=== PATIENT | male | born 1950 | race Caucasian/White ===

== ENCOUNTER 2016-04-15 12:31 | Observation (INO) ==
--- NOTE | 2016-04-15 12:58 | Emergency Department Note ---
Disposition Clinical Impression: Syncope Qualifiers: Syncope type: unspecified Qualified Code(s): R55 - Syncope and collapse Disposition: Admitted As Inpatient Condition: Good Referrals: Steven Collazo Jr, MD [Primary Care Provider] - Forms: ED Satisfaction Letter Time of Disposition: 15:28 General Adult HPI - General Chief complaint: ED Neuro Symptoms/Deficit Stated complaint: syncope x 2 Time Seen by Provider: 04/15/16 12:50 Source: patient, family Limitations: no limitations Nursing Notes Reviewed: Yes Vital Signs Reviewed: Yes - History of Present Illness HPI Narrative: 66-year-old male who apparently suffered a couple of episodes of syncope last 1 week ago. Patient apparently doesn't remember what happened doesn't remember driving home. He did suffer an injury to the right chest wall is a fluid collection with ecchymosis there. 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 Radiation: non-radiation Pain Scale: 6 Consistency: constant Improves with: nothing Worsens with: movement Associated symptoms: Reports: syncope - Related Data Home Medications Medication Instructions Recorded Confirmed Metoprolol [Lopressor] 50 mg PO BID 07/20/15 07/20/15 Omeprazole [PriLOSEC] 40 mg PO DAILY 07/20/15 07/20/15 Allergies Allergy/AdvReac Type Severity Reaction Status Date / Time No Known Allergies Allergy Verified 04/15/16 12:37 Constitutional: Denies: fever, chills, weakness, weight change Eyes: Denies: eye pain, eye discharge, vision change ENT ED: Denies: ear pain, throat pain, dental pain, hearing loss, epistaxis, congestion, dysphagia Cardiovascular: Reports: chest pain, syncope. Denies: palpitations, dyspnea on exertion, edema Respiratory: Denies: cough, dyspnea, wheezes, hemoptysis, stridor Gastrointestinal: Denies: abdominal pain, nausea, vomiting, diarrhea, constipation, hematemesis, melena, hematochezia Genitourinary: Denies: urgency, dysuria, frequency, hematuria Musculoskeletal: Denies: back pain, neck pain, arthralgia, myalgia Integumentary: Denies: rash, abrasion, lesions Neurological: Denies: headache, weakness, numbness, paresthesias, confusion, abnormal gait, vertigo Psychiatric: Denies: anxiety, depression, suicidal thoughts, homicidal thoughts , auditory hallucinations, visual hallucinations Endocrine: Denies: fatigue Hematological/Lymphatic: Denies: easy bleeding, easy bruising Allergic/Immunologic: Denies: facial swelling, urticaria Past Medical History - Past Medical History Medical history: Reports: GERD, hypertension, thyroid disease Surgical history: Reports: cataract, orthopedic, other Psychiatric history: Reports: anxiety, depression - Social History Smoking Status: Former smoker Smokeless Tobacco Status: No Alcohol use: Reports: heavy Drug use: Reports: none Physical Exam - General Limitations: no limitations General appearance: alert, in no apparent distress - Head Head exam: atraumatic, normocephalic, normal inspection - Eye Eye exam: Present: normal appearance, PERRL, EOMI - ENT ENT exam: normal exam, normal oropharynx, mucous membranes moist - Neck Neck exam: Present: normal inspection, full ROM, trachea midline - Chest Chest inspection: Present: tenderness, other (Ecchymotic) - Respiratory Respiratory exam: Present: normal lung sounds bilaterally - Cardiovascular Cardiovascular exam: Present: regular rate, normal rhythm, normal heart sounds - Abdominal Exam Abdominal exam: Present: soft, Non-Tender. Absent: tenderness, distention, guarding, rebound, rigidity - Extremities Exam Extremities exam: Present: normal inspection, full ROM. Absent: tenderness, pedal edema - Expanded Lower Extremity Exam Neurovascular/Tendon exam: Absent: motor deficit, sensory deficit, tendon deficit Gait: observed and normal - Back Exam Back exam: Present: normal inspection, full ROM. Absent: tenderness - Neurological Exam Neurological exam: Present: alert, oriented X3 - Psychiatric Psychiatric exam: Present: normal affect, normal mood - Skin Skin exam: Present: warm, dry, intact, normal color Course - Reevaluation(s) Reevaluation #1: 66-year-old who suffered a syncopal episode 2 with no memory of the incident. He initially fell and injured his chest and one of the episodes. Workup here is negative including cardiac and CT of the head. Also CT his chest which was negative. We will admit him for evaluation. Time: 15:28 - Consultations Consultation #1: Discussed with Dr. Burden, admitted. Time: 15:27 Vital Signs Temperature 98.3 F 04/15/16 12:37 Pulse Rate 84 04/15/16 12:37 Respiratory Rate 14 04/15/16 12:37 Blood Pressure 158/73 04/15/16 12:37 O2 Sat by Pulse Oximetry 95 04/15/16 12:37 Temperature 98.3 F 04/15/16 12:37 Pulse Rate 86 04/15/16 13:07 Respiratory Rate 16 04/15/16 13:07 Blood Pressure 137/86 04/15/16 13:07 O2 Sat by Pulse Oximetry 93 L 04/15/16 13:07 Oxygen Delivery Oxygen Delivery Room Air Medical Decision Making - Lab Data Lab results reviewed: Yes I reviewed the patient's lab results. Result diagrams: 04/15/16 13:05 04/15/16 13:05 Lab Results 04/15/16 04/15/16 04/15/16 Range/Units 13:05 13:05 13:05 WBC 7.6 (4.3-11.1) K/mcL RBC 5.24 (4.19-5.50) M/mcL Hgb 16.4 (12.9-16.9) g/dL Hct 46.4 (37.5-50.1) % MCV 88.5 (83.0-100.0) fL MCH 31.3 (28.0-33.3) pg MCHC 35.3 (31.6-35.5) g/dL RDW 13.2 (11.5-14.5) % Plt Count 212 (140-400) K/mcL MPV 9.4 (9.4-12.4) fL Immature Gran % 0.3 (0-4) % Seg Neutrophils % 47.2 % Lymphocytes % 37.5 % Monocytes % 11.5 % Eosinophils % 2.8 % Basophils % 0.7 % Neutrophils # 3.6 (1.6-8.9) K/mcL Lymphocytes # 2.8 (0.6-4.6) K/mcL Monocytes # 0.9 (0.0-1.3) K/mcL Eosinophils # 0.2 (0.0-0.6) K/mcL Basophils # 0.1 (0.0-0.2) K/mcL PT 11.0 (9.4-12.1) Seconds INR 1.0 APTT 29.9 (26.0-36.0) Seconds Sodium 139 (136-145) mEq/L Potassium 3.7 (3.5-4.5) mEq/L Chloride 108 (98-109) mEq/L Carbon Dioxide 22 (19-29) mEq/L BUN 21 (8-26) mg/dL Creatinine 1.20 (0.72-1.25) mg/dL Est GFR ( Amer) > 60 (> 60) Est GFR (Non-Af Amer) > 60 (> 60) BUN/Creatinine Ratio 18 (6-26) Glucose 80 (70-99) mg/dL Calculated Osmolality 290 (280-300) Calcium 9.5 (8.6-10.8) mg/dL Troponin I (0-0.03) ng/mL 04/15/16 Range/Units 13:05 WBC (4.3-11.1) K/mcL RBC (4.19-5.50) M/mcL Hgb (12.9-16.9) g/dL Hct (37.5-50.1) % MCV (83.0-100.0) fL MCH (28.0-33.3) pg MCHC (31.6-35.5) g/dL RDW (11.5-14.5) % Plt Count (140-400) K/mcL MPV (9.4-12.4) fL Immature Gran % (0-4) % Seg Neutrophils % % Lymphocytes % % Monocytes % % Eosinophils % % Basophils % % Neutrophils # (1.6-8.9) K/mcL Lymphocytes # (0.6-4.6) K/mcL Monocytes # (0.0-1.3) K/mcL Eosinophils # (0.0-0.6) K/mcL Basophils # (0.0-0.2) K/mcL PT (9.4-12.1) Seconds INR APTT (26.0-36.0) Seconds Sodium (136-145) mEq/L Potassium (3.5-4.5) mEq/L Chloride (98-109) mEq/L Carbon Dioxide (19-29) mEq/L BUN (8-26) mg/dL Creatinine (0.72-1.25) mg/dL Est GFR ( Amer) (> 60) Est GFR (Non-Af Amer) (> 60) BUN/Creatinine Ratio (6-26) Glucose (70-99) mg/dL Calculated Osmolality (280-300) Calcium (8.6-10.8) mg/dL Troponin I 0.02 (0-0.03) ng/mL - Radiology Data Radiology results reviewed: Yes I reviewed the patient's radiology results. Chest X-Ray 04/15/16 12:54 IMPRESSION: No acute cardiopulmonary process. D/ / 04/15/2016 13:51:13 Audie Lantigua MD / santiago Interpreting Provider: Audie Lantigua MD Chest CT 04/15/16 12:55 IMPRESSION: No acute pulmonary process. No evidence for acute osseous or chest wall injury. D/ / 04/15/2016 14:37:41 Medina Alatorre MD / cisco Interpreting Provider: Medina Alatorre MD Head CT 04/15/16 12:55 IMPRESSION: No acute intracranial abnormality. Patchy hypodensities in the periventricular and subcortical white matter, which are nonspecific, but may represent chronic small vessel ischemic change. D/ / 04/15/2016 14:36:03 Maxim Loza MD / cisco Interpreting Provider: Maxim Loza MD - EKG Data EKG #1 EKG shows normal: sinus rhythm Rate: normal Rhythm: NSR Interpretation: no acute changes
[2016-04-15 13:15] LABS: Basophils # 0.1 K/mcL (0.0-0.2); Basophils % 0.7 %; Eosinophils # 0.2 K/mcL (0.0-0.6); Eosinophils % 2.8 %; Hematocrit 46.4 % (37.5-50.1); Hemoglobin 16.4 g/dL (12.9-16.9); Immature Granulocytes % 0.3 % (0-4); Lymphocytes # 2.8 K/mcL (0.6-4.6); Lymphocytes % 37.5 %; Mean Corpuscular HGB Conc 35.3 g/dL (31.6-35.5); Mean Corpuscular Hemoglobin 31.3 pg (28.0-33.3); Mean Corpuscular Volume 88.5 fL (83.0-100.0); Mean Platelet Volume 9.4 fL (9.4-12.4); Monocytes # 0.9 K/mcL (0.0-1.3); Monocytes % 11.5 %; Neutrophils # 3.6 K/mcL (1.6-8.9); Platelet Count 212 K/mcL (140-400); Red Blood Count 5.24 M/mcL (4.19-5.50); Red Cell Distribution Width 13.2 % (11.5-14.5); Segmented Neutrophils % 47.2 %
[2016-04-15 13:22] LABS: Activated Partial Thrombo Time 29.9 Seconds (26.0-36.0)
[2016-04-15 13:24] LABS: BUN/Creatinine Ratio 18 (6-26); Blood Urea Nitrogen 21 mg/dL (8-26); Calcium 9.5 mg/dL (8.6-10.8); Carbon Dioxide 22 mEq/L (19-29); Chloride 108 mEq/L (98-109); Glucose 80 mg/dL (70-99); Osmolality,Calculated 290 (280-300); Potassium 3.7 mEq/L (3.5-4.5); Sodium 139 mEq/L (136-145); eGFR For African Americans > 60 (> 60); eGFR For Non-African Americans > 60 (> 60)
[2016-04-15] MEDS ORDERED: Naloxone 0.4 MG/ML INJ IVP PRN (18:14)
[2016-04-15] MEDS ORDERED: *HR* LORazepam 2 MG/ML VIAL IVP PRN ×3 (18:17)
[2016-04-15] MEDS: Ibuprofen 400 MG TABLET PO PRN (21:33)
--- NOTE | 2016-04-15 23:27 | Internal Med History&Physical ---
<Arlene Burden M - Last Filed: 04/16/16 01:33> Date of Encounter: 04/16/16 Time of Encounter: 23:22 Assessment and Plan (1) Syncope Current visit: Yes Status: Acute Patient with 2 episodes of syncope over the last month. He denies any warning prior to the episodes, denies any history of seizure, denies any loss of bladder function during or after episodes. CT head showed no acute abnormality. EKG showed sinus rhythm with no acute ischemic changes. 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 [facility] protocol for alcohol withdrawal. Social work consult. (3) RUQ abdominal tenderness Current visit: Yes Status: Acute Patient with RUQ tenderness to palpation. Heavy alcohol use. Will get LFTs with morning labs. Qualifiers: Presence of rebound: absent Qualified Code(s): R10.811 - Right upper quadrant abdominal tenderness (4) Elevated troponin Current visit: Yes Status: Acute Initial troponin negative at 0.02. EKG showed sinus rhythm with no ischemic changes. Second troponin mildly elevated at 0.04. EKG ordered and showed no changes from earlier EKG. Patient denies any new or increased chest pain besides the right lateral tenderness and soreness. Continue to trend troponins. continue telemetry. Echocardiogram is ordered. (5) Right-sided chest wall pain Current visit: Yes Status: Acute Patient reports that during one of his episodes of syncope, he fell onto his right side and has had soreness and tenderness since. Patient is tender to palpation on exam. He has not tried anything to relieve the pain. 400mg Ibuprofen PRN for soreness. (6) DVT prophylaxis Current visit: Yes Status: Acute encourage ambulation anti-embolic stockings lovenox 40mg SQ daily Internal Medicine - H&P: HPI Chief complaint: syncope Admitted From: Emergency Dept Plans for Post Hospital Care: Home History of present illness: Mr. Gong is a 66 year old male with hypertension, and GERD who presented to the emergency department today with reports of 2 episodes of syncope over the last month. The first episode was one month ago and says he just blacked out and fell down. He had no warning and denies any preceding lightheadedness, dizziness. The second episode was one week ago similar experience. After the episodes he reports he feels dazed for a while. He reports his hands have been feeling numb on and off for approximately one month since the first episode. He also reports some right-sided tenderness and swelling since the first episode when he fell. He denies any central chest pain, palpitations, other episodes of lightheadedness, nausea, vomiting, diarrhea. He denies any fever, chills. He decided to come to the emergency department today because his daughter found out about the episodes and brought him in. Evaluation in the emergency department included chest x-ray which showed no acute process, head CT which showed no acute intracranial abnormality some chronic small vessel changes. His EKG showed sinus rhythm with no acute ischemia. A chest CT was obtained as well due to the right-sided tenderness and swelling it showed no acute pulmonary process as well as no evidence for chest wall injury or fracture. Troponin was negative at 0.02. On exam patient is alert and oriented , in no distress, heart has regular rate and rhythm, lungs are clear bilaterally to auscultation. He has some mild tenderness on palpation to the lateral right rib cage, and right upper quadrant. Past Med Surg Social Fam HX - Past Medical History Medical history: GERD, hypertension, thyroid disease Psychiatric history: anxiety, depression - Past Surgical History Surgical History: cataract, knee replacement, orthopedic, other (shoulder, back) - Social History Smoking Status: Former smoker (100 Pack year history. smoked 2-3 PPD X 50 years ) Smokeless Tobacco Status: No Alcohol use: heavy Drug use: none - Family History Father Hx Family Neurologic Disorders: Yes (CVA) Internal Medicine - H&P: Meds Metoprolol [Lopressor] 50 mg PO BID 07/20/15 [History] Omeprazole [PriLOSEC] 40 mg PO DAILY 07/20/15 [History] Allergies No Known Allergies Allergy (Verified 04/15/16 12:37) All Systems PM: A 10-system review of systems was performed and is negative for pertinent findings except as documented above in the HPI. - Constitutional Constitutional: falls, no chills, no fever(s), no night sweats - EENT Eyes: no change in vision, no discharge, no pain, no photophobia Ears: no ear discharge, no ear pain, no tinnitus Nose, mouth and throat: no dysphagia, no nasal discharge, no neck pain, no sore throat - Cardiovascular Cardiovascular ROS IM: syncope, no chest pain, no diaphoresis, no dyspnea, no lightheadedness, no palpitations - Respiratory Respiratory: no cough, no dyspnea, no wheezing, no excessive phlegm production - Gastrointestinal Gastrointestinal: bloating, no abdominal pain, no diarrhea, no hematemesis, no hematochezia, no melena, no nausea, no vomiting - Musculoskeletal Musculoskeletal ROS IM: myalgias (right chest wall), no numbness, no tingling - Integumentary Integumentary IM: no rash, no unusual bruising - Neurological Neurological ROS: numbness (on and off to bilateral hands), no confusion, no convulsions, no focal weakness, no tingling, no tremor(s) - Hematologic/Lymphatic Hematologic/Lymphatic: no easy bruising - Constitutional Vitals: Temp Pulse Resp BP Pulse Ox 98.3 F 87 16 141/82 94 L 04/15/16 18:32 04/15/16 18:32 04/15/16 18:32 04/15/16 18:32 04/15/16 18:32 General appearance: Present: A&O X 3, no acute distress - Head Head exam: Present: atraumatic, normocephalic - Eye Eye exam: Present: PERRL, conjuntiva pink, sclera anicteric Pupils: Present: PERRL - Neck Neck exam general surgery: Present: supple, trachea midline. Absent: lymphadenopathy - Respiratory Respiratory exam: Present: CTAB. Absent: accessory muscle use, rales, rhonchi, wheezes - Cardiovascular Cardiovascular exam: Present: RRR, +S1, +S2. Absent: diastolic murmur, gallop, rubs, systolic murmur - GI/Abdominal GI/Abdominal exam: Present: normal bowel sounds, soft, tenderness (RUQ), no peritoneal signs. Absent: distended - Extremities Exam Extremities exam: Present: warm, radial pulses palpable and symetrical. Absent : calf tenderness, cyanotic, pedal edema - Neurological Exam Neurological exam: Present: CN II-XII intact, oriented X3, no focal deficits. Absent: pronater drift, facial droop, speech deficit - Skin Skin exam: Present: dry, intact Internal Med - H&P Results - Labs CBC & Chem 7: 04/15/16 13:05 04/15/16 13:05 Labs: Cardiac Enzymes 04/15/16 Range/Units 18:44 Troponin I 0.04 H* (0-0.03) ng/mL All Lab Results (24 Hours) 04/15/16 04/15/16 04/15/16 Range/Units 13:05 13:05 13:05 WBC 7.6 (4.3-11.1) K/mcL RBC 5.24 (4.19-5.50) M/mcL Hgb 16.4 (12.9-16.9) g/dL Hct 46.4 (37.5-50.1) % MCV 88.5 (83.0-100.0) fL MCH 31.3 (28.0-33.3) pg MCHC 35.3 (31.6-35.5) g/dL RDW 13.2 (11.5-14.5) % Plt Count 212 (140-400) K/mcL MPV 9.4 (9.4-12.4) fL Immature Gran % 0.3 (0-4) % Seg Neutrophils % 47.2 % Lymphocytes % 37.5 % Monocytes % 11.5 % Eosinophils % 2.8 % Basophils % 0.7 % Neutrophils # 3.6 (1.6-8.9) K/mcL Lymphocytes # 2.8 (0.6-4.6) K/mcL Monocytes # 0.9 (0.0-1.3) K/mcL Eosinophils # 0.2 (0.0-0.6) K/mcL Basophils # 0.1 (0.0-0.2) K/mcL PT 11.0 (9.4-12.1) Seconds INR 1.0 APTT 29.9 (26.0-36.0) Seconds Sodium 139 (136-145) mEq/L Potassium 3.7 (3.5-4.5) mEq/L Chloride 108 (98-109) mEq/L Carbon Dioxide 22 (19-29) mEq/L BUN 21 (8-26) mg/dL Creatinine 1.20 (0.72-1.25) mg/dL Est GFR ( Amer) > 60 (> 60) Est GFR (Non-Af Amer) > 60 (> 60) BUN/Creatinine Ratio 18 (6-26) Glucose 80 (70-99) mg/dL Calculated Osmolality 290 (280-300) Calcium 9.5 (8.6-10.8) mg/dL Troponin I (0-0.03) ng/mL 04/15/16 04/15/16 Range/Units 13:05 18:44 WBC (4.3-11.1) K/mcL RBC (4.19-5.50) M/mcL Hgb (12.9-16.9) g/dL Hct (37.5-50.1) % MCV (83.0-100.0) fL MCH (28.0-33.3) pg MCHC (31.6-35.5) g/dL RDW (11.5-14.5) % Plt Count (140-400) K/mcL MPV (9.4-12.4) fL Immature Gran % (0-4) % Seg Neutrophils % % Lymphocytes % % Monocytes % % Eosinophils % % Basophils % % Neutrophils # (1.6-8.9) K/mcL Lymphocytes # (0.6-4.6) K/mcL Monocytes # (0.0-1.3) K/mcL Eosinophils # (0.0-0.6) K/mcL Basophils # (0.0-0.2) K/mcL PT (9.4-12.1) Seconds INR APTT (26.0-36.0) Seconds Sodium (136-145) mEq/L Potassium (3.5-4.5) mEq/L Chloride (98-109) mEq/L Carbon Dioxide (19-29) mEq/L BUN (8-26) mg/dL Creatinine (0.72-1.25) mg/dL Est GFR ( Amer) (> 60) Est GFR (Non-Af Amer) (> 60) BUN/Creatinine Ratio (6-26) Glucose (70-99) mg/dL Calculated Osmolality (280-300) Calcium (8.6-10.8) mg/dL Troponin I 0.02 0.04 H* (0-0.03) ng/mL <Nadia Eaton R - Last Filed: 04/16/16 08:00> Date of Encounter: 04/15/16 Internal Medicine - H&P: HPI History of present illness: Mr. Gong is a 66 year old male All Systems PM: A 10-system review of systems was performed and is negative for pertinent findings except as documented above in the HPI. - Constitutional Vitals: Temp Pulse Resp BP Pulse Ox 97.6 F 65 16 126/76 96 04/16/16 03:11 04/16/16 03:11 04/16/16 03:11 04/16/16 03:11 04/16/16 03:11 Internal Med - H&P Results - Labs CBC & Chem 7: 04/16/16 01:20 04/16/16 01:20 Labs: Short CBC 04/16/16 Range/Units 01:20 WBC 6.5 (4.3-11.1) K/mcL Hgb 15.4 (12.9-16.9) g/dL Hct 44.5 (37.5-50.1) % Plt Count 205 (140-400) K/mcL Neutrophils # 3.0 (1.6-8.9) K/mcL BMP 04/16/16 01:20 Sodium 138 Potassium 4.0 Chloride 106 Carbon Dioxide 23 BUN 22 Creatinine 1.29 H Glucose 90 Calcium 9.1 Cardiac Enzymes 04/15/16 04/16/16 Range/Units 18:44 01:20 Troponin I 0.04 H* 0.07 H* (0-0.03) ng/mL Liver Function 04/16/16 Range/Units 01:20 Total Bilirubin 0.6 (0.2-1.2) mg/dL Direct Bilirubin 0.3 (0.0-0.5) mg/dL AST 45 H (5-34) Units/L ALT 55 (0-55) Units/L Alkaline Phosphatase 57 (38-126) Units/L Albumin 3.4 L (3.5-5.0) g/dL - Attending Attestation I examined this patient and my medical decision-making was reviewed with the BEAN [employer]OUT GROWER/PA/Advanced Practice Nurse/Resident Physician. I agree with the documented findings, disposition and treatment plan as described except to the extent set forth below. 66 Y/M with episodes of syncope, pain on the right side of chest. Mild elevation of troponins. Plan: Echocardiogram, cardiology consult, EEG, carotid doppler, cardiac monitoring.
[2016-04-16 01:38] LABS: Basophils # 0.1 K/mcL (0.0-0.2); Basophils % 1.1 %; Eosinophils # 0.2 K/mcL (0.0-0.6); Eosinophils % 3.1 %; Hematocrit 44.5 % (37.5-50.1); Hemoglobin 15.4 g/dL (12.9-16.9); Immature Granulocytes % 0.2 % (0-4); Lymphocytes # 2.4 K/mcL (0.6-4.6); Lymphocytes % 37.5 %; Mean Corpuscular HGB Conc 34.6 g/dL (31.6-35.5); Mean Corpuscular Volume 89.7 fL (83.0-100.0); Mean Platelet Volume 9.4 fL (9.4-12.4); Monocytes # 0.7 K/mcL (0.0-1.3); Monocytes % 11.3 %; Platelet Count 205 K/mcL (140-400); Red Blood Count 4.96 M/mcL (4.19-5.50); Red Cell Distribution Width 13.2 % (11.5-14.5); Segmented Neutrophils % 46.8 %
[2016-04-16 01:52] LABS: BUN/Creatinine Ratio 17 (6-26); Blood Urea Nitrogen 22 mg/dL (8-26); Calcium 9.1 mg/dL (8.6-10.8); Carbon Dioxide 23 mEq/L (19-29); Chloride 106 mEq/L (98-109); Glucose 90 mg/dL (70-99); Osmolality,Calculated 289 (280-300); Sodium 138 mEq/L (136-145); eGFR For African Americans > 60 (> 60); eGFR For Non-African Americans 55 (> 60)
[2016-04-16 01:53] LABS: Albumin 3.4 g/dL (3.5-5.0); Albumin/Globulin Ratio 1.1 (1.1-2.2); Bilirubin,Direct 0.3 mg/dL (0.0-0.5); Bilirubin,Indirect 0.3 mg/dL (0.0-1.2); Bilirubin,Total 0.6 mg/dL (0.2-1.2); Globulin 3.1 g/dL (2.4-3.5); Total Protein 6.5 g/dL (6.0-8.3)
[2016-04-16] MEDS ORDERED: *HR* Morphine 2 MG/ML SYRINGE IVP ONE (02:23)
[2016-04-16] MEDS: Ibuprofen 400 MG TABLET PO PRN ×2 (05:06→16:34)
[2016-04-16] MEDS: Folic Acid 1 MG TABLET PO SCH (08:31)
[2016-04-16] MEDS: Vitamin B Complex/Vit C/Vit E 1 EACH TABLET PO SCH (08:31)
[2016-04-16] MEDS: Thiamine (B-1) 100 MG TABLET PO SCH (08:32)
[2016-04-16] MEDS ORDERED: Aspirin 325 MG TABLET PO ONE (08:44)
[2016-04-16] MEDS: Nitroglycerin 0.4 MG TAB.SUBL SL PRN ×2 (08:54→09:03)
[2016-04-16] MEDS: *HR* OxyCODONE/APAP 5/325 TABLET PO PRN ×2 (12:54→19:37)
--- NOTE | 2016-04-16 12:58 | Electrocardiograph Report ---
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
--- NOTE | 2016-04-16 13:27 | Cardiology Consult Note ---
<Deangelo Barreto R - Last Filed: 04/16/16 14:43> Date of Encounter: 04/16/16 Time of Encounter: 13:16 Assessment and Plan (1) Syncope Current Visit: Yes Status: Acute Patient with 2 episodes of syncope over the last month. Reports dizziness/lightheadedness prior to episodes. CT head showed no acute abnormality. EKG showed sinus rhythm with no acute ischemic changes. 24 hour tele reviewed--AVG HR 71, no significant pauses or arrhythmias noted. Normal EEG. Echo pending to evaluate structure and function. Carotid dopplers ordered. Order orthostatic vitals. Pt does admit to 5-6 beers/day and does not drink much water. Recommend staying hydrated. Episodes have both occurred while sitting. Further recommendations pending echo results, but anticipate stress test in AM for further evaluation. Continue to follow and monitor tele. Qualifiers: Syncope type: unspecified Qualified Code(s): R55 - Syncope and collapse (2) Alcohol abuse Current Visit: Yes Status: Acute Patient reports drinking 5-6 beers daily. [facility] protocol for alcohol withdrawal. Social work consult. (3) Elevated troponin Current Visit: Yes Status: Acute Troponins borderline 0.02, 0.04, 0.07 of unclear significance. He reports constant right sided chest wall tenderness since his first syncopal event 1 month ago, not worsened by exertion and no chest pain prior to fall. Echo pending. If no significant findings, proceed with stress test in AM for ischemia evaluation. Do not currently suspect ACS. Will recheck a troponin to see if down or uptrending. (4) Right-sided chest wall pain Current Visit: Yes Status: Acute Patient reports that during the first episode of syncope, he fell onto his right side and has had soreness and tenderness since. Patient is tender to palpation on exam. He has not tried anything to relieve the pain. 400mg Ibuprofen PRN for soreness. Discussion w patient/family: The assessment and plan as outlined above was discussed with the patient and/or family members who expressed understanding and agreement. All questions were answered. Thank you for involving us in the care of your patient. Please call with any questions. I will discuss all the above with Dr. Simental and make changes as necessary. History of Present Illness Consult date: 04/16/16 Requesting physician: Nadia Eaton Consult reason: elevated troponin, syncope Chief complaint: syncope History of present illness: Mr. Gong is a 66 year old male with PMH of HTN, GERD, prior tobacco abuse who presented to the ED with reports of 2 episodes of syncope over the last month. The first episode was one month ago and says he just blacked out and fell down while sitting in a barstool in a bar. He reports he had had 3 beers, that he was not intoxicated. He reports he was dizzy and lightheaded beforehand. The second episode was one week ago similar experience while sitting. After the episodes he reports he feels dazed for a while. He reports 5 -6 beers daily. He reports his hands have been feeling numb on and off for approximately one month since the first episode. He also reports some right- sided chest tenderness and swelling since the first episode when he fell. He denies any central chest pain, exertional chest pain, palpitations. He decided to come to the ED because his daughter found out about the episodes and brought him in. Chest x-ray which showed no acute process, head CT which showed no acute intracranial abnormality some chronic small vessel changes. His EKG showed sinus rhythm with no acute ischemia. A chest CT was obtained as well due to the right-sided tenderness and swelling it showed no acute pulmonary process as well as no evidence for chest wall injury or fracture. Troponins 0.02 , 0.05, 0.07. Echo pending. Tele reviewed--no evidence of arrythmias. Past Med Surg Social Fam HX - Past Medical History Medical history: GERD, hypertension Psychiatric history: anxiety, depression - Past Surgical History Surgical History: cataract, knee replacement, orthopedic, other (shoulder, back) - Social History Smoking Status: Former smoker (100 Pack year history. smoked 2-3 PPD X 50 years ) Smokeless Tobacco Status: No Alcohol use: heavy Drug use: none - Family History Father Hx Family Neurologic Disorders: Yes (CVA) Medications and Allergies Metoprolol [Lopressor] 50 mg PO BID 07/20/15 [History] Omeprazole [PriLOSEC] 40 mg PO DAILY 07/20/15 [History] Allergies No Known Allergies Allergy (Verified 04/15/16 12:37) All Systems Review: A 10-system review of systems was performed and is negative for pertinent findings except as documented above in the HPI. - Cardiovascular Cardiovascular: as per HPI, chest pain at rest, dyspnea on exertion, lightheadedness, syncope - Respiratory Respiratory: dyspnea Physical Examination Vital Signs, Last 4 Hours Temp Pulse Resp BP Pulse Ox 04/16/16 11:19 98.3 F 66 16 135/81 97 Vital Signs Temp Pulse Resp BP Pulse Ox 04/16/16 11:19 98.3 F 66 16 135/81 97 04/16/16 03:11 97.6 F 65 16 126/76 96 04/16/16 00:28 98.0 F 61 15 122/80 97 04/15/16 18:32 98.3 F 87 16 141/82 94 L 04/15/16 17:29 97.8 F 73 15 136/85 97 04/15/16 17:11 16 136/80 04/15/16 16:16 83 16 119/82 93 L 04/15/16 15:30 88 16 143/88 96 04/15/16 14:30 82 16 116/97 96 Intake and Output 04/15/16 04/16/16 04/16/16 23:59 07:59 15:59 Intake Total 950 / 950 1140 / 1140 Output Total 250 / 250 400 / 400 275 / 275 Balance -250 / -250 550 / 550 865 / 865 Intake: Oral 950 / 950 1140 / 1140 Output: Urine 250 / 250 400 / 400 275 / 275 Other: Meal water pitcher filled Percent of Meal Consumed 80% Weight 101.151 kg 100.244 kg Patient Weight 04/16/16 23:59 Weight 100.244 kg General: Conversant, No Apparent Distress HEENT: Atraumatic, Normocephaly, Mucus Membranes Moist Neck: No JVD, Normal carotid pulses Cardiac: Reg Rate and Rhythm, Normal S1 and S2, No Murmur Lungs: Normal Breath Sounds, No Wheeze, Rales, Rhonchi Neuro: Alert and responsive, No focal deficits noted Abdomen: Soft, Non-Tender Skin: No rashes noted on visualized skin Musculoskeletal: No Chest Wall Tenderness Extremities: No Clubbing, No Cyanosis, No Edema, Normal Pulses Results 04/16/16 01:20 04/16/16 01:20 Lab Results 04/15/16 04/16/16 04/16/16 18:44 01:20 01:20 WBC 6.5 Hgb 15.4 Hct 44.5 Plt Count 205 Sodium Potassium Chloride Carbon Dioxide BUN Creatinine Glucose Calcium Total Bilirubin AST ALT Alkaline Phosphatase Troponin I 0.04 H* 0.07 H* 04/16/16 04/16/16 01:20 01:20 WBC Hgb Hct Plt Count Sodium 138 Potassium 4.0 Chloride 106 Carbon Dioxide 23 BUN 22 Creatinine 1.29 H Glucose 90 Calcium 9.1 Total Bilirubin 0.6 AST 45 H ALT 55 Alkaline Phosphatase 57 Troponin I Short CBC 04/16/16 Range/Units 01:20 WBC 6.5 (4.3-11.1) K/mcL Hgb 15.4 (12.9-16.9) g/dL Hct 44.5 (37.5-50.1) % Plt Count 205 (140-400) K/mcL Neutrophils # 3.0 (1.6-8.9) K/mcL BMP 04/16/16 Range/Units 01:20 Sodium 138 (136-145) mEq/L Potassium 4.0 (3.5-4.5) mEq/L Chloride 106 (98-109) mEq/L Carbon Dioxide 23 (19-29) mEq/L BUN 22 (8-26) mg/dL Creatinine 1.29 H (0.72-1.25) mg/dL Glucose 90 (70-99) mg/dL Calcium 9.1 (8.6-10.8) mg/dL Cardiac Enzymes 04/16/16 04/15/16 04/15/16 Range/Units 01:20 18:44 13:05 Troponin I 0.07 H* 0.04 H* 0.02 (0-0.03) ng/mL Liver Function 04/16/16 Range/Units 01:20 Total Bilirubin 0.6 (0.2-1.2) mg/dL Direct Bilirubin 0.3 (0.0-0.5) mg/dL AST 45 H (5-34) Units/L ALT 55 (0-55) Units/L Alkaline Phosphatase 57 (38-126) Units/L Albumin 3.4 L (3.5-5.0) g/dL Impressions Chest X-Ray 04/15/16 12:54 IMPRESSION: No acute cardiopulmonary process. D/ / 04/15/2016 13:51:13 Audie Lantigua MD / [email or web address] Interpreting Provider: Audie Lantigua MD Chest CT 04/15/16 12:55 IMPRESSION: No acute pulmonary process. No evidence for acute osseous or chest wall injury. D/ / 04/15/2016 14:37:41 Medina Alatorre MD / cisco Interpreting Provider: Medina Alatorre MD Head CT 04/15/16 12:55 IMPRESSION: No acute intracranial abnormality. Patchy hypodensities in the periventricular and subcortical white matter, which are nonspecific, but may represent chronic small vessel ischemic change. D/ / 04/15/2016 14:36:03 Maxim Loza MD / cisco Interpreting Provider: Maxim Loza MD Active Medications Folic Acid (Folic Acid) 1 mg PO DAILY TY Stop: 10/16/16 09:01 Last Admin: 04/16/16 08:31 Dose: 1 mg Ibuprofen (Motrin) 400 mg PO Q6HR PRN PRN Reason: FEVER/PAIN Stop: 10/15/16 21:05 Last Admin: 04/16/16 05:06 Dose: 400 mg Lorazepam (Ativan) 1 mg IVP Q1H PRN PRN Reason: Alcohol Withdrawal Stop: 10/15/16 18:18 Lorazepam (Ativan) 2 mg IVP Q4HR PRN PRN Reason: CIWA Score of 10-21 Stop: 10/15/16 18:18 Lorazepam (Ativan) 4 mg IVP Q4HR PRN PRN Reason: CIWA Score of 22-45 Stop: 10/15/16 18:18 Metoprolol Tartrate (Lopressor) 50 mg PO BID TY Stop: 10/15/16 21:01 Last Admin: 04/16/16 08:31 Dose: 50 mg Naloxone HCl (Narcan) 0.4 mg IVP Q2MIN PRN PRN Reason: Opioid Reversal Stop: 10/15/16 18:15 Nitroglycerin (Nitroglycerin) 0.4 mg SL Q5MIN PRN PRN Reason: Chest Pain Stop: 10/16/16 02:16 Last Admin: 04/16/16 09:03 Dose: 0.4 mg Omeprazole (Prilosec) 40 mg PO DAILY TY PRN Reason: Protocol Stop: 10/16/16 09:01 Last Admin: 04/16/16 08:31 Dose: 40 mg Oxycodone/Acetaminophen (Percocet 5/325) 1 each PO Q6HR PRN PRN Reason: Pain Stop: 10/16/16 10:49 Last Admin: 04/16/16 12:54 Dose: 1 each Thiamine HCl (Vitamin B-1) 100 mg PO DAILY TY Stop: 10/16/16 09:01 Last Admin: 04/16/16 08:32 Dose: 100 mg Vitamin B Complex/Vit C/Vit E (Stresstab) 1 each PO DAILY TY Stop: 10/16/16 09:01 Last Admin: 04/16/16 08:31 Dose: 1 each - Imaging and Cardiology Chest Xray: report reviewed Echo: pending - EKG Interpretation EKG results cardiology: personally reviewed, other (24 hour tele AVG HR 71, no significant pauses or arrhythmias) Consult Discharge Plan - Plan Referrals: Steven Collazo Jr, MD [Primary Care Provider] - <Manuela Simental - Last Filed: 04/16/16 16:02> Assessment and Plan Discussion w patient/family: The assessment and plan as outlined above was discussed with the patient and/or family members who expressed understanding and agreement. All questions were answered. Thank you for involving us in the care of your patient. Please call with any questions. History of Present Illness History of present illness: Mr. Gong is a 66 year old male All Systems Review: A 10-system review of systems was performed and is negative for pertinent findings except as documented above in the HPI. Physical Examination Vital Signs, Last 4 Hours Temp Pulse Resp BP Pulse Ox 04/16/16 15:03 98.1 F 71 16 135/82 96 Results 04/16/16 01:20 04/16/16 01:20 Lab Results 04/15/16 04/16/16 04/16/16 18:44 01:20 01:20 WBC 6.5 Hgb 15.4 Hct 44.5 Plt Count 205 Sodium Potassium Chloride Carbon Dioxide BUN Creatinine Glucose Calcium Total Bilirubin AST ALT Alkaline Phosphatase Troponin I 0.04 H* 0.07 H* 04/16/16 04/16/16 04/16/16 01:20 01:20 15:00 WBC Hgb Hct Plt Count Sodium 138 Potassium 4.0 Chloride 106 Carbon Dioxide 23 BUN 22 Creatinine 1.29 H Glucose 90 Calcium 9.1 Total Bilirubin 0.6 AST 45 H ALT 55 Alkaline Phosphatase 57 Troponin I 0.05 H* - Attending Attestation I examined this patient and my medical decision-making was reviewed with the PLASTIC EYE TECHNICIAN/PA/Advanced Practice Nurse/Resident Physician. I agree with the documented findings, disposition and treatment plan. Mr. Gong presents with 2 episodes of syncope over the past month, etiology of which is unclear. Both however were in the setting of alcohol consumption. The patient has not demonstrated any concerning dysrhythmia on telemetry. His echo demonstrates preserved LV and RV function. It also demonstrated however, mild LV apical hypokinesis. He denies any prior history of chest pain but does have risk factors for CAD. We recommend consideration of stress testing for an evaluation of ischemia given wall motion abnormalities on echo. At this point, invasive testing does not appear warranted. We also recommended staying well hydrated and stopping all alcoholic beverages.
--- NOTE | 2016-04-16 13:29 | EEG/EMG/Oth Biometrics Report ---
EEG Procedure Report Date of procedure: 04/16/16 EEG Procedure: Routine EEG Procedure Note: This is a report of a 21 channel bipolar and referential montages. The posterior dominant rhythm of 9 Hz moderate voltage alpha frequency is identified symmetrically in the posterior head regions. This rhythm attenuates symmetrically with eye opening. Hyperventilation was not performed during the recording. There is no sleep architecture identified during the study. Photic stimulation is performed and produces a symmetric driving response. The EKG strip reveals normal sinus rhythm at 70 beats per minute. Impressions: This EEG recording was within normal limits. There is no evidence of epileptiform activity identified during the study. Comment: A normal EEG does not preclude the diagnosis of seizure or epilepsy. If the clinical suspicion for seizure activities is high, serial EEGs or perhaps a prolonged recording may prove beneficial. Please correlate clinically. The documentation in the history of HPI and plan were at least partially created by [employer] voice recognition technology by Dr. Mae. Errors in grammar, wording or other phrases may exist. If errors are found after the documentation signed, they will be addressed individually in the addendum section of this document when appropriate.
--- NOTE | 2016-04-16 13:46 | ECHO - Doppler Report ---
Echocardiogram Name: Walt Gong Date of Study: 04/16/2016 Date: 1950 Ht: 70.0 in Medical Record#: [id number] Age: 66 Wt: 221.0 lb Gender: Male BSA: 2.18 Order #: [id number] Location: [facility] Room #: 3B41 Reading Physician: Sriram Lyle MD, [facility] [place] Planter: Keyla Witt Ordering Physician: Arlene Burden CNP Primary Physician: Steven Collazo MD Indications: Syncope Impressions: LVEF 55-60%. There is hypokinesis of the apical septum and apical inferior wall. Mild left ventricular diastolic dysfunction. Normal right ventricular size and function. No significant valvular dysfunction. Unable to estimate RVSP due to lack of TR jet. Left Ventricular Wall Motion: Rest Echo Findings The apical inferior and apical septal le were hypokinetic. All other wall segments showed normal motion. Findings: Study Quality * Suboptimal echo windows. ECG Findings * Normal sinus rhythm. Left Ventricle * LVEF 55-60%. There is hypokinesis of the apical septum and apical inferior wall. * Normal LV chamber size and wall thickness. * Mild left ventricular diastolic dysfunction. Right Ventricle * Normal right ventricular size and function. Left Atrium * Normal left atrial size. Right Atrium * Normal right atrial size. Aorta * Normally sized aortic root. Pericardium * There is no pericardial effusion present. IVC * The IVC is not well evaluated. Mitral Valve * Normal mitral valve structure. * No mitral stenosis. * Trace mitral regurgitation. Tricuspid Valve * Normal tricuspid valve structure. * No tricuspid stenosis. * Trace tricuspid regurgitation. * Unable to estimate RVSP due to lack of TR jet. Pulmonic Valve * Pulmonic valve not well visualized. * No pulmonic stenosis. * Trace pulmonic regurgitation. Aortic Valve * Aortic valve not well visualized. Appears trileaflet. * No aortic stenosis. * Trace aortic regurgitation. History Hypertension Family History of CAD Measurements: BP: 126/ 76 2D Normal Values RVIDd: 3.00 cm IVSd: 1.00 cm 0.6 - 1.0 cm LVIDd: 4.40 cm 3.7 - 5.6 cm LVPWd: 1.00 cm 0.6 - 1.1 cm LVIDs: 2.70 cm 1.5 - 3.6 cm AO: 3.00 cm < 4.0 cm LA volume: 56 Mitral Valve Peak E:.72 m/sec Peak A:.85 m/sec E/A Ratio:0.8 Updated by Sriram Lyle MD, [facility] on 04/16/2016 1:41:08 PM electronically signed on 04/16/2016 1:42:21 PM with status of Final Wall Motion Soto: 1=Normal, 2=Hypokinesis, 3=Akinesis, 4=Dyskinesis, 5=Aneurysmal, 6=Hyperkinetic, X=Not Visualized (Blank)=Missing
--- NOTE | 2016-04-16 16:47 | Internal Med Progress Note ---
Date of Encounter: 04/16/16 Time of Encounter: 10:00 - Assessment and plan (1) Syncope Current Visit: Yes Status: Acute Assessment and plan: Etiology is undetermined. Dehydration versus vasovagal syncope. Will obtain orthostatic vitals. We will closely monitor patient with continuous cardiac monitoring. Echo and duplex carotid will be followed. EEG is negative. Cardiology consult appreciated. Qualifiers: Syncope type: unspecified Qualified Code(s): R55 - Syncope and collapse (2) Alcohol abuse Current Visit: Yes Status: Acute Assessment and plan: On CIWA protocol (3) Elevated troponin Current Visit: Yes Status: Acute Assessment and plan: Start trending down. Plan for stress test at a.m. (4) RUQ abdominal tenderness Current Visit: Yes Status: Acute Assessment and plan: Liver function tests unremarkable. Possibly due to injury caused by fall. Qualifiers: Presence of rebound: absent Qualified Code(s): R10.811 - Right upper quadrant abdominal tenderness (5) Right-sided chest wall pain Current Visit: Yes Status: Acute Assessment and plan: Caused by injury caused by fall during last syncope. CT chest shows no fracture. (6) DVT prophylaxis Current Visit: Yes Status: Acute Assessment and plan: Heparin subcutaneously - Time Spent With Patient 25 - 35 minutes - Subjective Interval history: Patient is a 66-year-old male admitted for syncope, he also complained of chest pain, which is possibly due to fall and injury caused by syncope. His past medical history is significant for hypertension, GERD, and alcoholism. Patient was seen and examined. Patient is awake alert. Complaining chest pain. No difficulties breathing, no diaphoresis, no nausea, no vomiting. Vitals are stable. EEG is negative. Slightly elevated troponin, cardiology consult appreciated. Plan for stress test tomorrow. Continue current treatment and pain management. Follow-up echo and duplex carotid result. - Constitutional Vitals: Temp Pulse Resp BP Pulse Ox 98.1 F 71 16 135/82 96 04/16/16 15:03 04/16/16 15:03 04/16/16 15:03 04/16/16 15:03 04/16/16 15:03 General appearance: Present: A&O X 3, no acute distress - Head Head exam: Present: atraumatic, normocephalic - Eye Eye exam: Present: PERRL, conjuntiva pink, sclera anicteric Pupils: Present: PERRL - Neck Neck exam general surgery: Present: supple, trachea midline. Absent: lymphadenopathy - Respiratory Respiratory exam: Present: chest wall tenderness (On her right side), CTAB. Absent: accessory muscle use, rales, rhonchi, wheezes - Cardiovascular Cardiovascular exam: Present: RRR, +S1, +S2. Absent: diastolic murmur, gallop, rubs, systolic murmur - GI/Abdominal GI/Abdominal exam: Present: normal bowel sounds, soft, no peritoneal signs. Absent: distended, tenderness - Extremities Exam Extremities exam: Present: warm, radial pulses palpable and symetrical. Absent : calf tenderness, cyanotic, pedal edema - Neurological Exam Neurological exam: Present: CN II-XII intact, oriented X3, no focal deficits. Absent: pronater drift, facial droop, speech deficit - Skin Skin exam: Present: dry, intact Internal Medicine: Result - Labs CBC & Chem 7: 04/16/16 01:20 04/16/16 01:20 Labs: Short CBC 04/16/16 Range/Units 01:20 WBC 6.5 (4.3-11.1) K/mcL Hgb 15.4 (12.9-16.9) g/dL Hct 44.5 (37.5-50.1) % Plt Count 205 (140-400) K/mcL Neutrophils # 3.0 (1.6-8.9) K/mcL BMP 04/16/16 01:20 Sodium 138 Potassium 4.0 Chloride 106 Carbon Dioxide 23 BUN 22 Creatinine 1.29 H Glucose 90 Calcium 9.1 Cardiac Enzymes 04/15/16 04/16/16 04/16/16 Range/Units 18:44 01:20 15:00 Troponin I 0.04 H* 0.07 H* 0.05 H* (0-0.03) ng/mL Liver Function 04/16/16 Range/Units 01:20 Total Bilirubin 0.6 (0.2-1.2) mg/dL Direct Bilirubin 0.3 (0.0-0.5) mg/dL AST 45 H (5-34) Units/L ALT 55 (0-55) Units/L Alkaline Phosphatase 57 (38-126) Units/L Albumin 3.4 L (3.5-5.0) g/dL - ABG Interpretation ABG results: PT/INR, D-dimer PT 11.0 Seconds (9.4-12.1) 04/15/16 13:05 Consult Discharge Plan - Plan Referrals: Steven Collazo Jr, MD [Primary Care Provider] -
[2016-04-16] MEDS: 0.9 % Sodium Chloride 1,000 ML IVC SCH (17:25)
[2016-04-16] MEDS: *HR* Heparin 5,000 UNIT/ML VIAL SQ SCH (17:28)
--- NOTE | 2016-04-16 17:43 | Carotid Imaging Report ---
Carotid Duplex Patient Name:Walt Gong Order Number:[id number] Procedure Date:04/16/2016 Date:8Age:66 yrs Gender:Male Location:[facility] Room #: 3B41 Cfo Controller:Keyla Witt Referring MD:Arlene Burden CNP flower cheniller:Steven Collazo MD Reading MD:Sriram Steele MD Risk Factors Yes/No Hypertension Yes Smoker Previous Yes Hx of TIA No Impressions: The bilateral carotid arteries have minimal plaque throughout. Recommendations: After imaging the patient returned to their room. Findings Carotid Duplex: Right: The right proximal common carotid artery has a PSV of 64 cm/s and a EDV of 9 cm/s. The right mid common carotid artery has a PSV of 67 cm/s and a EDV of 11 cm/s. The right distal common carotid artery has a PSV of 56 cm/s and a EDV of 13 cm/s. There is nonstenotic plaque in the right bifurcation with a PSV of 80 cm/s and a EDV of 18 cm/s. There is smooth heterogeneous plaque. The right proximal internal carotid artery has a PSV of 64 cm/s and a EDV of 18 cm/s. The right mid internal carotid artery has a PSV of 71 cm/s and a EDV of 25 cm/s. The right distal internal carotid artery has a PSV of 54 cm/s and a EDV of 23 cm/s. The right eca has a PSV of 102 cm/s and a EDV of 9 cm/s. The right vertebral artery has a PSV of 22 cm/s and a EDV of 5 cm/s. Left: The left proximal common carotid artery has a PSV of 72 cm/s and a EDV of 12 cm/s. The left mid common carotid artery has a PSV of 76 cm/s and a EDV of 14 cm/s. The left distal common carotid artery has a PSV of 53 cm/s and a EDV of 13 cm/s. There is nonstenotic plaque in the left bifurcation with a PSV of 54 cm/s and a EDV of 9 cm/s. There is smooth heterogeneous plaque. The left proximal internal carotid artery has a PSV of 59 cm/s and a EDV of 20 cm/s. The left mid internal carotid artery has a PSV of 79 cm/s and a EDV of 28 cm/s. The left distal internal carotid artery has a PSV of 79 cm/s and a EDV of 25 cm/s. The left eca has a PSV of 93 cm/s and a EDV of 11 cm/s. The left vertebral artery has a PSV of 31 cm/s and a EDV of 8 cm/s. Carotid Results Right PSV EDV Assessment Proximal CCA 64 9 Mid CCA 67 11 Distal CCA 56 13 Bifurcation 80 18 Proximal ICA 64 18 Mid ICA 71 25 Distal ICA 54 23 ECA 102 9 Vertebral Artery 22 5 Left PSV EDV Assessment Proximal CCA 72 12 Mid CCA 76 14 Distal CCA 53 13 Bifurcation 54 9 Proximal ICA 59 20 Mid ICA 79 28 Distal ICA 79 25 ECA 93 11 Vertebral Artery 31 8 Ratio's Right ICA/CCA Ratio: 1.06 ICA/CCA Values: 71/67 Left ICA/CCA Ratio: 1.04 ICA/CCA Values: 79/76 Updated by Sriram Steele MD on 04/16/2016 5:37:16 PM electronically signed on 04/16/2016 5:38:17 PM with status of Final
--- NOTE | 2016-04-16 19:03 | Electrocardiograph Report ---
[address] [place] [address] Test Date: 2016-04-15 Pat Name: Walt Gong Department: 103 Room: 3B41 Gender: M Heel Attacher: : 1950 Requested By: Rajan Sebastian Order Number: [id number] Reading MD: Ani Harper Measurements Intervals [place] Rate: 74 P: 40 UT: 149 QRS: -20 QRSD: 83 T: 58 QT: 385 QTc: 412 Interpretive Statements SINUS RHYTHM POSSIBLE LEFT ATRIAL ENLARGEMENT ANTERIOR MYOCARDIAL INFARCTION, OF INDETERMINATE AGE Electronically Signed On 04-16-2016 19:01:46 EST by Ani Harper
[2016-04-16] MEDS ORDERED: traZODone 50 MG TABLET PO PRN (21:11)
[2016-04-16] MEDS ORDERED: Melatonin 3 MG TABLET PO SCH (21:15)
[2016-04-17] MEDS: *HR* OxyCODONE/APAP 5/325 TABLET PO PRN ×2 (03:27→11:56)
[2016-04-17] MEDS: 0.9 % Sodium Chloride 1,000 ML IVC SCH (06:06)
[2016-04-17] MEDS: *HR* Heparin 5,000 UNIT/ML VIAL SQ SCH (06:07)
[2016-04-17 06:08] LABS: Basophils % 0.8 %; Eosinophils # 0.2 K/mcL (0.0-0.6); Eosinophils % 4.6 %; Hematocrit 42.3 % (37.5-50.1); Hemoglobin 14.6 g/dL (12.9-16.9); Immature Granulocytes % 0.2 % (0-4); Lymphocytes % 38.3 %; Mean Corpuscular HGB Conc 34.5 g/dL (31.6-35.5); Mean Corpuscular Hemoglobin 31.7 pg (28.0-33.3); Mean Platelet Volume 10.2 fL (9.4-12.4); Monocytes # 0.5 K/mcL (0.0-1.3); Monocytes % 10.3 %; Neutrophils # 2.4 K/mcL (1.6-8.9); Platelet Count 185 K/mcL (140-400); Red Cell Distribution Width 13.2 % (11.5-14.5); Segmented Neutrophils % 45.8 %
[2016-04-17 06:24] LABS: BUN/Creatinine Ratio 18 (6-26); Blood Urea Nitrogen 19 mg/dL (8-26); Calcium 8.6 mg/dL (8.6-10.8); Carbon Dioxide 18 mEq/L (19-29); Chloride 111 mEq/L (98-109); Glucose 111 mg/dL (70-99); Osmolality,Calculated 289 (280-300); Sodium 138 mEq/L (136-145); eGFR For African Americans > 60 (> 60); eGFR For Non-African Americans > 60 (> 60)
[2016-04-17] MEDS ORDERED: Regadenoson 0.4 MG/5 ML SYRINGE IVP ONE (06:45)
[2016-04-17 11:36] VITALS: BP 135/87
[2016-04-17] MEDS: Vitamin B Complex/Vit C/Vit E 1 EACH TABLET PO SCH (12:12)
[2016-04-17] MEDS: Thiamine (B-1) 100 MG TABLET PO SCH (12:12)
[2016-04-17] MEDS: Folic Acid 1 MG TABLET PO SCH (12:13)
--- NOTE | 2016-04-17 14:32 | Nuclear Medicine Stress Report ---
Regadenoson Nuclear Stress Name: Walt Gong Date of Study: 04/17/2016 Date: 1950 Ht: 70.0 in Medical Record#: [id number] Age: 66 Wt: 225.0 lb Gender: Male Order #: [id number] Location: [facility] Room: [facility] Supervising Provider: Steven Tirado CNP Reading Physician: Jon Hermosillo DO, FACMellissa, OKSANA LIMON Ordering Physician: Florencia Blandon MD Primary Care Physician: Steven Collazo MD Stress Technologist: Chip Morejon, STRUCTURAL DRAFTSMAN, [facility] Nurse Office: Anshu Brown Indications: Chest Pain Impression: Pharmacologic stress ECG is non diagnostic for ischemia due to failure to reach target heart rate. Gated EF = 71%. Medium sized, moderate to severe intensity, fixed perfusion defect involving the apex and surrounding apical segments suggestive of a prior infarct. Perfusion imaging was negative for ischemia. History: Hypertension Stress Test Summary: Stress Test Type: Pharmacologic Regadenoson 0.4mg/5ml given IV Baseline Information: Initial Heart Rate: 74 Blood Pressure: 118/82 Stress Information: Stress Time: 4 min 00 sec Test Terminated Due to (primary): Completed Protocol Maximum Blood Pressure: 100/64 Maximum Heart Rate: 103 Percent Maximum Heart Rate Achieved: 68 Double Product: 73424 METS Reached: 1 Symptoms: Shortness of breath Nuclear Summary: SPECT myocardial perfusion imaging using Tc99m Sestamibi given intravenously was performed at rest and following cardiac stress testing. The resting images were obtained following initial dose of 11.2 mCi. Following stress an additional dose of 35 mCi was given at peak exercise or 30 seconds post regadenoson infusion. Medication Given: Time Medication Dose Units Route Findings: Stress Note * Resting ECG demonstrated normal sinus rhythm. Possible age indeterminate antersoeptal infarction noted. * No baseline arrhythmias were noted. * Pharmacologic stress ECG is non diagnostic for ischemia due to failure to reach target heart rate. * No arrhythmias were noted during stress. * Patient had no chest pain during stress. * Normal hemodynamic responses to pharmacologic stress. Study Quality * Study quality is average. Gated EF % * Gated EF = 71%. Left Ventricle * The left ventricle is not dilated. LVEDV = 84 mL. Apical Perfusion Rest * The apex and surrounding apical segments show a moderate to severe reduction in perfusion. Apical Perfusion Stress * The apex and surrounding apical segments show a moderate to severe reduction in perfusion. TID * No evidence of transient ischemic dilatation. TID ratio = 1.08. Lung Uptake * There is no evidence of increase lung uptake. Updated by Jon Hermosillo DO, FACMellissa, ASHLY, OKSANA on 04/17/2016 2:27:56 PM electronically signed on 04/17/2016 2:28:55 PM with status of Final
--- NOTE | 2016-04-17 15:44 | Cardiology Progress Note ---
Date of Encounter: 04/17/16 Time of Encounter: 15:41 Assessment and Plan (1) Syncope Current Visit: Yes Status: Acute Patient with 2 episodes of syncope over the last month. Reports dizziness/lightheadedness prior to episodes. CT head showed no acute abnormality. EKG showed sinus rhythm with no acute ischemic changes. 24 hour tele reviewed--no significant pauses or arrhythmias noted. Normal EEG. Echo EF 55-60%, hypokinesis of apical septum and apical inferior wall, mild diastolic dysfunction. No significant valvular dysfunction. Pt does admit to 5-6 beers/day and does not drink much water. Recommend staying hydrated. Stress test resulted--suggestive of infarct in apex and surrounding apical segments. Perfusion imaging negative for ischemia. No further inpt cardiac work-up indicated. Recommend outpt follow-up in 2-3 weeks and can evaluate need for event monitor at that time. Qualifiers: Syncope type: unspecified Qualified Code(s): R55 - Syncope and collapse (2) Alcohol abuse Current Visit: Yes Status: Acute Patient reports drinking 5-6 beers daily. [facility] protocol for alcohol withdrawal. Social work consult. (3) Elevated troponin Current Visit: Yes Status: Acute Troponins borderline 0.02, 0.04, 0.07, 0.05 of unclear significance. He reports constant right sided chest wall tenderness since his first syncopal event 1 month ago, not worsened by exertion and no chest pain prior to fall. Echo shows preserved EF, hypokinesis of apical septum and apical inferior wall. Stress test Gated EF 71%, moderate sized, moderate-severe fixed perfusion defect involving apex and surrounding apical segments suggestive of prior infarct. Perfusion imaging negative for ischemia. No further ischemic evaluation warranted at this time. (4) Right-sided chest wall pain Current Visit: Yes Status: Acute Patient reports that during the first episode of syncope, he fell onto his right side and has had soreness and tenderness since. Patient is tender to palpation on exam. He has not tried anything to relieve the pain. 400mg Ibuprofen PRN for soreness. Discussion w patient/family: The assessment and plan as outlined above was discussed with the patient and/or family members who expressed understanding and agreement. All questions were answered. Thank you for involving us in the care of your patient. Please call with any questions. I will discuss all the above with Dr. Simental and make changes as necessary. Subjective Principal diagnosis: Syncope Interval history: Stress test resulted. Gated EF 71%, moderate sized, moderate-severe fixed perfusion defect involving apex and surrounding apical segments suggestive of prior infarct. Perfusion imaging negative for ischemia. Denies any recurrent syncope while inpt. 24 hour tele reviewed with significant pauses or arrhythmias. Objective Vital Signs Temp Pulse Resp BP Pulse Ox 04/17/16 11:35 97.8 F 78 20 135/87 98 04/17/16 07:49 97.5 F L 64 16 125/56 99 04/17/16 04:02 97.6 F 65 16 120/77 94 L 04/17/16 00:05 97.6 F 66 12 111/67 95 04/16/16 19:10 98.0 F 73 12 134/74 96 Intake and Output 04/16/16 04/17/16 04/17/16 23:59 07:59 15:59 Intake Total 790 / 790 1800 / 1800 240 / 240 Output Total 500 / 500 400 / 400 Balance 290 / 290 1400 / 1400 240 / 240 Intake: IV Fluids 1000 / 1000 0.9 % Sodium Chloride 1, 1000 / 1000 000 ML @ 80 mls/hr IVC . [id number] [id number] Rx#: [id number] Oral 790 / 790 800 / 800 240 / 240 Output: Urine 500 / 500 400 / 400 Other: Meal Dinner Lunch Percent of Meal Consumed 100% 100% Stool Size Small Stool Consistency soft Stool Characteristics Normal for Patient Stool Color Brown Weight 104.871 kg Patient Weight 04/17/16 23:59 Weight 104.871 kg General: Conversant, No Apparent Distress HEENT: Atraumatic, Normocephaly, Mucus Membranes Moist Neck: No JVD, Normal carotid pulses Cardiac: Reg Rate and Rhythm, Normal S1 and S2, No Murmur Lungs: Normal Breath Sounds, No Wheeze, Rales, Rhonchi Neuro: Alert and responsive, No focal deficits noted Abdomen: Soft, Non-Tender Skin: No rashes noted on visualized skin Musculoskeletal: No Chest Wall Tenderness Extremities: No Clubbing, No Cyanosis, No Edema, Normal Pulses Results 04/17/16 04:21 04/17/16 04:21 Lab Results 04/17/16 04/17/16 04:21 04:21 WBC 5.3 Hgb 14.6 Hct 42.3 Plt Count 185 Sodium 138 Potassium 4.0 Chloride 111 H Carbon Dioxide 18 L BUN 19 Creatinine 1.04 Glucose 111 H Calcium 8.6 Short CBC 04/17/16 Range/Units 04:21 WBC 5.3 (4.3-11.1) K/mcL Hgb 14.6 (12.9-16.9) g/dL Hct 42.3 (37.5-50.1) % Plt Count 185 (140-400) K/mcL Neutrophils # 2.4 (1.6-8.9) K/mcL BMP 04/17/16 Range/Units 04:21 Sodium 138 (136-145) mEq/L Potassium 4.0 (3.5-4.5) mEq/L Chloride 111 H (98-109) mEq/L Carbon Dioxide 18 L (19-29) mEq/L BUN 19 (8-26) mg/dL Creatinine 1.04 (0.72-1.25) mg/dL Glucose 111 H (70-99) mg/dL Calcium 8.6 (8.6-10.8) mg/dL Active Medications Folic Acid (Folic Acid) 1 mg PO DAILY [facility] Stop: 10/16/16 09:01 Last Admin: 04/17/16 12:13 Dose: 1 mg Heparin Sodium (Porcine) (Heparin) 5,000 unit SQ Q12HCO [facility] Stop: 10/16/16 19:01 Last Admin: 04/17/16 06:07 Dose: 5,000 unit Sodium Chloride (0.9 % Sodium Chloride) 1,000 mls @ 80 mls/hr IVC .[id number] [facility] Stop: 10/16/16 16:46 Last Admin: 04/17/16 06:06 Dose: 80 mls/hr Ibuprofen (Motrin) 400 mg PO Q6HR PRN PRN Reason: FEVER/PAIN Stop: 10/15/16 21:05 Last Admin: 04/16/16 16:34 Dose: 400 mg Lorazepam (Ativan) 1 mg IVP Q1H PRN PRN Reason: Alcohol Withdrawal Stop: 10/15/16 18:18 Lorazepam (Ativan) 2 mg IVP Q4HR PRN PRN Reason: CIWA Score of 10-21 Stop: 10/15/16 18:18 Lorazepam (Ativan) 4 mg IVP Q4HR PRN PRN Reason: CIWA Score of 22-45 Stop: 10/15/16 18:18 Melatonin (Melatonin) 3 mg PO HS TY Stop: 10/16/16 21:16 Last Admin: 04/16/16 21:20 Dose: 3 mg Metoprolol Tartrate (Lopressor) 50 mg PO BID TY Stop: 10/15/16 21:01 Last Admin: 04/17/16 12:13 Dose: 50 mg Naloxone HCl (Narcan) 0.4 mg IVP Q2MIN PRN PRN Reason: Opioid Reversal Stop: 10/15/16 18:15 Nitroglycerin (Nitroglycerin) 0.4 mg SL Q5MIN PRN PRN Reason: Chest Pain Stop: 10/16/16 02:16 Last Admin: 04/16/16 09:03 Dose: 0.4 mg Omeprazole (Prilosec) 40 mg PO DAILY TY PRN Reason: Protocol Stop: 10/16/16 09:01 Last Admin: 04/17/16 12:12 Dose: 40 mg Oxycodone/Acetaminophen (Percocet 5/325) 1 each PO Q6HR PRN PRN Reason: Pain Stop: 10/16/16 10:49 Last Admin: 04/17/16 11:56 Dose: 1 each Thiamine HCl (Vitamin B-1) 100 mg PO DAILY TY Stop: 10/16/16 09:01 Last Admin: 04/17/16 12:12 Dose: 100 mg Trazodone HCl (Trazodone) 50 mg PO HS PRN PRN Reason: Sleep Stop: 10/16/16 21:12 Vitamin B Complex/Vit C/Vit E (Stresstab) 1 each PO DAILY TY Stop: 10/16/16 09:01 Last Admin: 04/17/16 12:12 Dose: 1 each - Imaging and Cardiology Stress Test: report reviewed Echo: report reviewed - EKG Interpretation EKG results cardiology: other (24 hour tele reviewed. No significant pauses or arrhythmias. SR.) Consult Discharge Plan - Plan Referrals: Steven Collazo Jr, MD [Primary Care Provider] - 05/07/16 10:30 am
--- NOTE | 2016-04-17 15:53 | Discharge Summary ---
Date of Encounter: 04/17/16 Time of Encounter: 15:00 - Discharge Diagnosis (1) Syncope Priority: Primary Status: Acute Qualifiers: Qualified Code(s): R55 - Syncope and collapse (2) Alcohol abuse Priority: Primary Status: Acute (3) Elevated troponin Priority: Primary Status: Acute (4) RUQ abdominal tenderness Priority: Primary Status: Acute Qualifiers: Qualified Code(s): R10.811 - Right upper quadrant abdominal tenderness (5) Right-sided chest wall pain Priority: Primary Status: Acute (6) DVT prophylaxis Priority: Secondary Status: Acute - Discharge Medications Prescriptions: Ibuprofen [Motrin] 400 mg PO Q6HR PRN #30 tablet PRN Reason: Pain Home Medications: Metoprolol [Lopressor] 50 mg PO BID 07/20/15 [History] Omeprazole [PriLOSEC] 40 mg PO DAILY 07/20/15 [History] Ibuprofen [Motrin] 400 mg PO Q6HR PRN #30 tablet 04/17/16 [Rx] Allergies/Adverse Reactions: Allergies No Known Allergies Allergy (Verified 04/15/16 12:37) Procedures/tests Complete & Pending: Procedures Performed prior 72 hours Category Date Time Status NM antony perf SPECT multi [NM] Routine Exams 04/17/16 08:00 Taken ECG 12 lead ECG [ECG] Routine Y 04/15/16 20:44 Completed EV carotid duplex imaging BI Routine Y 04/16/16 18:16 Completed EV echocardiogram Routine Y 04/16/16 18:16 Completed SP pharm nuclear stress Routine Y 04/17/16 08:00 Completed Date of admission: 04/15/16 16:05 Primary care physician: Steven Collazo Jr, MD Consults: 04/15/16 18:17 Consult to Materials Technician [CONS] Routine Reason for SW Consult: daily alcohol use 04/16/16 07:48 Consult to Cardiology [CONS] Routine Comment: Consulting Provider: Cardiology Nancy Reason for Consult: Elevated troponin Call Completed: No 04/16/16 10:04 Consult to Interpret Exam [CONS] Routine Consulting Provider: Sriram Mae Consult to Interpret Exam: Interpret EEG Discharging clinician: Florencia Blandon Anticipated date of discharge: 04/17/16 - Patient Status Disposition: Home, Self-Care Condition: Good Functional capacity at discharge: independent ambulation Overall status at discharge: patient is back to baseline - Discharge Instructions Follow Up With: Steven Collazo Jr, MD [Primary Care Provider] - 05/07/16 10:30 am - Diet and Activity Activity: increase activity as tolerated Diet: low fat, low cholesterol Interval History: Mr. Gong is a 66 year old male with hypertension, and GERD who presented to the emergency department today with reports of 2 episodes of syncope over the last month. The first episode was one month ago and says he just blacked out and fell down. He had no warning and denies any preceding lightheadedness, dizziness. The second episode was one week ago similar experience. After the episodes he reports he feels dazed for a while. He reports his hands have been feeling numb on and off for approximately one month since the first episode. He also reports some right-sided tenderness and swelling since the first episode when he fell. He denies any central chest pain, palpitations, other episodes of lightheadedness, nausea, vomiting, diarrhea. He denies any fever, chills. He decided to come to the emergency department today because his daughter found out about the episodes and brought him in. Evaluation in the emergency department included chest x-ray which showed no acute process, head CT which showed no acute intracranial abnormality some chronic small vessel changes. His EKG showed sinus rhythm with no acute ischemia. A chest CT was obtained as well due to the right-sided tenderness and swelling it showed no acute pulmonary process as well as no evidence for chest wall injury or fracture. Troponin was negative at 0.02. On exam patient is alert and oriented , in no distress, heart has regular rate and rhythm, lungs are clear bilaterally to auscultation. He has some mild tenderness on palpation to the lateral right rib cage, and right upper quadrant. Hospital course: Mr. Gong is a 66 year old male admitted for syncope. He also complained of right-sided chest wall pain, which is due to chest wall injury during syncope and fall. Patient has a mild elevated troponin, which trended down laterly. Cardiology consult was called. Patient had stress test, but the result is nondiagnostic because of the heart rate is not to reach the certain level. Further discussed with cardiology, no further testing needed in the hospital, patient will follow up with cardiology as outpatient. Patient had continuous cardiac monitoring for over 24 hours. He had an echo and duplex carotid the test done, results are unremarkable. Etiology of syncope possibly due to orthostatic hypotension or vasovagal response. Patient was advised to quit drinking alcohol and hydrate himself well. His EEG negative for seizure activity, no witnessed the seizure has been reported. If there is seizure activity in the future, he needs see neurology. We will consider discharge patient home today and he will follow-up with PCP as outpatient. I saw and examined the patient today. He is awake alert, oriented 3. Still with right chest wall pain, no shortness of breath, no nausea, no vomiting. Vitals are stable. Labs showed renal function has improved to normal level. Will discharge patient home with NSAID for pain. No opioid that because his alcoholic history. Patient is also advised no driving until PCP further clear him. - Time Spent with Patient Total time spent providing and/or coordinating discharge services: 40 minutes Greater than 30 minutes - Constitutional Vitals: Temp Pulse Resp BP Pulse Ox 97.8 F 78 20 135/87 98 04/17/16 11:35 04/17/16 11:35 04/17/16 11:35 04/17/16 11:35 04/17/16 11:35 General appearance: Present: A&O X 3, no acute distress - Head Head exam: Present: atraumatic, normocephalic - Eye Eye exam: Present: PERRL, conjuntiva pink, sclera anicteric Pupils: Present: PERRL - Neck Neck exam general surgery: Present: supple, trachea midline. Absent: lymphadenopathy - Respiratory Respiratory exam: Present: chest wall tenderness (On right side), CTAB. Absent : accessory muscle use, rales, rhonchi, wheezes - Cardiovascular Cardiovascular exam: Present: RRR, +S1, +S2. Absent: diastolic murmur, gallop, rubs, systolic murmur - GI/Abdominal GI/Abdominal exam: Present: normal bowel sounds, soft, no peritoneal signs. Absent: distended, tenderness - Extremities Exam Extremities exam: Present: warm, radial pulses palpable and symetrical. Absent : calf tenderness, cyanotic, pedal edema - Neurological Exam Neurological exam: Present: CN II-XII intact, oriented X3, no focal deficits. Absent: pronater drift, facial droop, speech deficit - Skin Skin exam: Present: dry, intact
== END 2016-04-17 17:03 | disposition home or self-care (01) ==
LOC: EMEROO 12:31 → 3BNU 12:31 → SUATTDRO 16:05 → 3BNU 17:13
PROVIDERS: ADMIT Nurse Practitioner Family; ATTEND Internal Medicine

== ENCOUNTER 2021-01-28 15:33 | Observation (INO) ==
[2021-01-28] MEDS ORDERED: Isovue-370 500 ML BOTTLE IVP ONE (16:00)
[2021-01-28 16:25] LABS: Basophils # 0.1 K/mcL (0.0-0.2); Basophils % 0.7 %; Eosinophils # 0.2 K/mcL (0.0-0.6); Eosinophils % 3.2 %; Hematocrit 42.3 % (37.5-50.1); Hemoglobin 14.1 g/dL (12.9-16.9); Immature Granulocytes % 0.1 % (0-4); Lymphocytes # 2.6 K/mcL (0.6-4.6); Lymphocytes % 38.6 %; Mean Corpuscular HGB Conc 33.3 g/dL (31.6-35.5); Mean Corpuscular Hemoglobin 30.9 pg (28.0-33.3); Mean Corpuscular Volume 92.8 fL (83.0-100.0); Mean Platelet Volume 10.2 fL (9.4-12.4); Monocytes # 0.6 K/mcL (0.0-1.3); Monocytes % 8.1 %; Neutrophils # 3.3 K/mcL (1.6-8.9); Platelet Count 241 K/mcL (140-400); Red Blood Count 4.56 M/mcL (4.19-5.50); Red Cell Distribution Width 13.4 % (11.5-14.5); Segmented Neutrophils % 49.3 %; White Blood Count 6.8 K/mcL (4.3-11.1)
[2021-01-28 16:32] LABS: Prothrombin Time 11.2 Seconds (9.4-12.1)
[2021-01-28 16:35] LABS: Activated Partial Thrombo Time 31.7 Seconds (26.0-36.0)
[2021-01-28 16:52] LABS: Bacteria,Urine Few per hpf (None-Few); Bilirubin,Urine Negative (Negative); Blood,Urine Negative (Negative); Clarity,Urine Clear (Clear); Color,Urine Yellow (Yellow); Glucose,Urine (UA) Normal (Normal); Hyaline Casts,Urine Few per lpf (None Seen); Ketones,Urine Trace mg/dL (Negative); Leukocyte Esterase,Urine Negative (Negative); Mucus,Urine Few per lpf (None-Few); Nitrite,Urine Negative (Negative); Protein,Urine 30 mg/dL (Neg-Trace); RBC,Urine 0-3 per hpf (0-3); Specific Gravity,Urine 1.019 (1.010-1.025); Squamous Epithelial Cell,Urine Few per hpf (None-Few); WBC,Urine 0-3 per hpf (0-3)
[2021-01-28 16:58] LABS: Amphetamine Screen,Urine Negative ng/mL (Cutoff=1000); Barbiturate Screen,Urine Negative ng/mL (Cutoff=200); Benzodiazepines Screen,Urine Negative ng/mL (Cutoff=200); Cannabinoid Screen,Urine Negative ng/mL (Cutoff = 50); Cocaine Screen,Urine Negative ng/mL (Cutoff= 300); Opiate Screen,Urine Negative ng/mL (Cutoff=300); Phencyclidine Screen,Urine Negative ng/mL (Cutoff=25)
[2021-01-28 17:01] LABS: Alanine Aminotransferase 12 Units/L (7-52); Albumin 4.1 g/dL (3.5-5.7); Albumin/Globulin Ratio 1.5 (1.1-2.2); Alkaline Phosphatase 66 Units/L (34-104); Aspartate Amino Transferase 13 Units/L (13-39); BUN/Creatinine Ratio 11 (6-26); Bilirubin,Direct 0.2 mg/dL (0.0-0.2); Bilirubin,Indirect 0.7 mg/dL (0.0-1.0); Bilirubin,Total 0.9 mg/dL (0.3-1.0); Blood Urea Nitrogen 18 mg/dL (8-23); Calcium 9.3 mg/dL (8.6-10.3); Carbon Dioxide 24 mEq/L (23-29); Chloride 100 mEq/L (98-107); Ethanol < 10 mg/dL (Less than 10); Globulin 2.8 g/dL (2.4-3.5); Glucose 89 mg/dL (70-105); Osmolality,Calculated 285 (280-300); Potassium 4.1 mEq/L (3.5-5.1); Sodium 137 mEq/L (136-145); Thyroid Stimulating Hormone 1.632 mcIU/mL (0.340-5.600); Total Protein 6.9 g/dL (6.4-8.9); Troponin I < 0.03 ng/mL (< 0.04); eGFR For African Americans 51 (> 60); eGFR For Non-African Americans 42 (> 60)
[2021-01-28] MEDS ORDERED: 0.9 % Sodium Chloride 500 ML IVC ONE (17:25)
[2021-01-28] MEDS ORDERED: Naloxone 0.4 MG/ML INJ IVP PRN (21:28)
[2021-01-28] MEDS ORDERED: Acetaminophen 325 MG TABLET PO PRN (21:54)
[2021-01-28] MEDS ORDERED: *HR* OxyCODONE Immed Rel 5 MG TABLET PO PRN (21:54)
[2021-01-28] MEDS ORDERED: Gadolinium Contrast Agent (WT Based) IV PRN (21:54)
[2021-01-28] MEDS ORDERED: Ondansetron ODT 4 MG TAB.RAPDIS SL PRN (21:54)
[2021-01-28] MEDS ORDERED: Melatonin 3 MG TABLET PO PRN (21:54)
[2021-01-28] MEDS ORDERED: *HR* HYDROcodone/Acet 5/325 mg TABLET PO PRN (21:54)
[2021-01-28] MEDS ORDERED: *HR* Promethazine 25 MG/ML VIAL IM PRN (22:17)
[2021-01-28] MEDS ORDERED: *HR* LORazepam 2 MG/ML VIAL IVP PRN (22:17)
[2021-01-28 22:25] LABS: Hematocrit 42.8 % (37.5-50.1); Hemoglobin 14.4 g/dL (12.9-16.9); Mean Corpuscular HGB Conc 33.6 g/dL (31.6-35.5); Mean Corpuscular Hemoglobin 30.9 pg (28.0-33.3); Mean Corpuscular Volume 91.8 fL (83.0-100.0); Mean Platelet Volume 9.9 fL (9.4-12.4); Platelet Count 231 K/mcL (140-400); Red Blood Count 4.66 M/mcL (4.19-5.50); Red Cell Distribution Width 13.3 % (11.5-14.5); White Blood Count 6.9 K/mcL (4.3-11.1)
[2021-01-28 22:41] LABS: Calcium 9.2 mg/dL (8.6-10.3)
[2021-01-28] MEDS: 0.9 % Sodium Chloride 1,000 ML IVC SCH (23:31)
[2021-01-29 01:02] LABS: INR 1.1; Prothrombin Time 11.9 Seconds (9.4-12.1)
[2021-01-29 01:12] LABS: Alanine Aminotransferase 10 Units/L (7-52); Albumin 3.9 g/dL (3.5-5.7); Albumin/Globulin Ratio 1.6 (1.1-2.2); Alkaline Phosphatase 60 Units/L (34-104); Aspartate Amino Transferase 13 Units/L (13-39); BUN/Creatinine Ratio 12 (6-26); Bilirubin,Total 0.8 mg/dL (0.3-1.0); Blood Urea Nitrogen 16 mg/dL (8-23); Carbon Dioxide 22 mEq/L (23-29); Chloride 104 mEq/L (98-107); Chol/HDL Ratio 4.4 (0-4.9); Cholesterol 167 mg/dL (< 200); Globulin 2.5 g/dL (2.4-3.5); Glucose 138 mg/dL (70-105); HDL Cholesterol 38 mg/dL (40-59); LDL Cholesterol,Calculated 101 mg/dL (< 100); Osmolality,Calculated 287 (280-300); Potassium 3.6 mEq/L (3.5-5.1); Sodium 137 mEq/L (136-145); Total Protein 6.4 g/dL (6.4-8.9); Triglycerides 142 mg/dL (< 150); Troponin I < 0.03 ng/mL (< 0.04); eGFR For African Americans > 60 (> 60); eGFR For Non-African Americans 51 (> 60)
[2021-01-29 01:27] LABS: Estimated Average Glucose 105 mg/dl; Hemoglobin A1C 5.3 %
[2021-01-29] MEDS ORDERED: Perflutren Lipid Microsphere 1.3 ML in 0.9 % Sodium Chloride 8.7 ML IVP PRN (07:50)
[2021-01-29] MEDS: 0.9 % Sodium Chloride 1,000 ML IVC SCH ×2 (07:58→11:54)
[2021-01-29] MEDS ORDERED: Folic Acid 1 MG TABLET PO SCH (09:00)
[2021-01-29] MEDS ORDERED: Vitamin B Complex/Vit C/Vit E 1 EACH TABLET PO SCH (09:00)
[2021-01-29] MEDS ORDERED: Thiamine (B-1) 100 MG TABLET PO SCH (09:00)
[2021-01-29] MEDS ORDERED: Aspirin 81 MG TAB.CHEW PO SCH (11:15)
[2021-01-29] MEDS ORDERED: *HR* LORazepam 2 MG/ML VIAL IVP PRN ×2 (11:20)
[2021-01-29 15:29] VITALS: BP 127/73; PULSE 83; TEMP 98.7; O2SAT 97
== END 2021-01-29 19:15 | disposition home health service (06) ==
LOC: 2ANU 15:33 → EMEROOARM 15:33 → SUATTDRO 22:11 → 2ANU 22:43
PROVIDERS: ADMIT Internal Medicine; ATTEND Internal Medicine

== ENCOUNTER 2021-10-10 05:32 | Observation (INO) ==
[2021-10-10 06:40] LABS: Basophils # 0.1 K/mcL (0.0-0.2); Basophils % 0.7 %; Eosinophils # 0.3 K/mcL (0.0-0.6); Eosinophils % 4.1 %; Hematocrit 37.3 % (37.5-50.1); Hemoglobin 12.8 g/dL (12.9-16.9); Immature Granulocytes % 0.3 % (0-4); Lymphocytes # 2.1 K/mcL (0.6-4.6); Lymphocytes % 29.3 %; Mean Corpuscular HGB Conc 34.3 g/dL (31.6-35.5); Mean Corpuscular Hemoglobin 30.3 pg (28.0-33.3); Mean Corpuscular Volume 88.2 fL (83.0-100.0); Monocytes # 0.6 K/mcL (0.0-1.3); Monocytes % 8.3 %; Neutrophils # 4.2 K/mcL (1.6-8.9); Platelet Count 194 K/mcL (140-400); Red Blood Count 4.23 M/mcL (4.19-5.50); Segmented Neutrophils % 57.3 %; White Blood Count 7.3 K/mcL (4.3-11.1)
[2021-10-10 06:58] LABS: VBG HCO3 26 mEq/L (21-27); VBG PCO2 49 mmHg (41-51); VBG PH 7.33 pH Units (7.32-7.42); VBG PO2 50 mmHg (25-50)
[2021-10-10 07:10] LABS: Bilirubin,Urine Negative (Negative); Blood,Urine Negative (Negative); Clarity,Urine Clear (Clear); Color,Urine Light-Yellow (Yellow); Glucose,Urine (UA) Normal (Normal); Hyaline Casts,Urine Few per lpf (None Seen); Ketones,Urine Negative (Negative); Leukocyte Esterase,Urine Negative (Negative); Mucus,Urine Few per lpf (None-Few); Nitrite,Urine Negative (Negative); Protein,Urine 30 mg/dL (Neg-Trace); RBC,Urine 0-3 per hpf (0-3); Specific Gravity,Urine 1.029 (1.010-1.025); Urobilinogen,Urine Normal (Normal); WBC,Urine 0-3 per hpf (0-3)
[2021-10-10 07:16] LABS: Alanine Aminotransferase 16 Units/L (7-52); Albumin/Globulin Ratio 1.7 (1.1-2.2); Alkaline Phosphatase 62 Units/L (34-104); Aspartate Amino Transferase 15 Units/L (13-39); BUN/Creatinine Ratio 19 (6-26); Bilirubin,Direct 0.1 mg/dL (0.0-0.2); Bilirubin,Indirect 0.5 mg/dL (0.0-1.0); Bilirubin,Total 0.6 mg/dL (0.3-1.0); Blood Urea Nitrogen 31 mg/dL (8-23); Calcium 9.1 mg/dL (8.6-10.3); Carbon Dioxide 27 mEq/L (23-29); Chloride 103 mEq/L (98-107); Globulin 2.4 g/dL (2.4-3.5); Glucose 93 mg/dL (70-105); Magnesium 2.1 mg/dL (1.6-2.6); Osmolality,Calculated 286 (280-300); Phosphorous 3.8 mg/dL (2.7-4.5); Potassium 4.5 mEq/L (3.5-5.1); Sodium 135 mEq/L (136-145); Total Protein 6.4 g/dL (6.4-8.9)
[2021-10-10 07:23] LABS: Troponin I < 0.03 ng/mL (< 0.04)
[2021-10-10] MEDS ORDERED: 0.9 % Sodium Chloride 1,000 ML IVC ONE (07:39)
[2021-10-10 07:52] LABS: Amphetamine Screen,Urine Negative ng/mL (Cutoff=1000); Barbiturate Screen,Urine Negative ng/mL (Cutoff=200); Benzodiazepines Screen,Urine Negative ng/mL (Cutoff=200); Cannabinoid Screen,Urine Positive ng/mL (Cutoff = 50); Cocaine Screen,Urine Negative ng/mL (Cutoff= 300); Opiate Screen,Urine Negative ng/mL (Cutoff=300); Phencyclidine Screen,Urine Negative ng/mL (Cutoff=25)
[2021-10-10] MEDS ORDERED: Iopamidol - 370 500 ML MLS IVP ONE (08:00)
[2021-10-10] MEDS ORDERED: Naloxone 0.4 MG/ML INJ IVP PRN (08:55)
[2021-10-11 03:55] LABS: Basophils # 0.1 K/mcL (0.0-0.2); Basophils % 0.8 %; Eosinophils # 0.3 K/mcL (0.0-0.6); Eosinophils % 4.3 %; Hematocrit 35.4 % (37.5-50.1); Immature Granulocytes % 0.2 % (0-4); Lymphocytes # 2.3 K/mcL (0.6-4.6); Lymphocytes % 34.7 %; Mean Corpuscular HGB Conc 33.9 g/dL (31.6-35.5); Mean Corpuscular Hemoglobin 30.2 pg (28.0-33.3); Mean Corpuscular Volume 89.2 fL (83.0-100.0); Mean Platelet Volume 10.5 fL (9.4-12.4); Monocytes # 0.4 K/mcL (0.0-1.3); Monocytes % 6.8 %; Neutrophils # 3.5 K/mcL (1.6-8.9); Platelet Count 187 K/mcL (140-400); Red Blood Count 3.97 M/mcL (4.19-5.50); Red Cell Distribution Width 14.3 % (11.5-14.5); Segmented Neutrophils % 53.2 %; White Blood Count 6.5 K/mcL (4.3-11.1)
[2021-10-11 04:15] LABS: Calcium 8.9 mg/dL (8.6-10.3); Potassium 4.1 mEq/L (3.5-5.1)
[2021-10-11] MEDS: Aspirin 81 MG TAB.CHEW PO SCH (08:15)
[2021-10-11] MEDS: levETIRAcetam 250 MG TABLET PO SCH ×2 (14:14→20:25)
[2021-10-12 07:40] VITALS: BP 136/81; PULSE 68; TEMP 97.4; O2SAT 100
[2021-10-12] MEDS: levETIRAcetam 250 MG TABLET PO SCH (09:00)
[2021-10-12] MEDS: Aspirin 81 MG TAB.CHEW PO SCH (09:00)
[2021-10-12 09:59] LABS: Basophils # 0.1 K/mcL (0.0-0.2); Basophils % 0.8 %; Eosinophils # 0.4 K/mcL (0.0-0.6); Eosinophils % 4.6 %; Hematocrit 38.9 % (37.5-50.1); Hemoglobin 13.2 g/dL (12.9-16.9); Immature Granulocytes % 0.1 % (0-4); Lymphocytes # 2.4 K/mcL (0.6-4.6); Lymphocytes % 31.5 %; Mean Corpuscular HGB Conc 33.9 g/dL (31.6-35.5); Mean Corpuscular Hemoglobin 30.1 pg (28.0-33.3); Mean Corpuscular Volume 88.8 fL (83.0-100.0); Mean Platelet Volume 10.1 fL (9.4-12.4); Monocytes # 0.5 K/mcL (0.0-1.3); Monocytes % 6.5 %; Neutrophils # 4.3 K/mcL (1.6-8.9); Platelet Count 204 K/mcL (140-400); Red Blood Count 4.38 M/mcL (4.19-5.50); Red Cell Distribution Width 14.2 % (11.5-14.5); Segmented Neutrophils % 56.5 %; White Blood Count 7.6 K/mcL (4.3-11.1)
[2021-10-12 10:07] LABS: Calcium 9.1 mg/dL (8.6-10.3); Potassium 4.1 mEq/L (3.5-5.1)
== END 2021-10-12 14:00 | disposition home or self-care (01) ==
LOC: 3NENU 05:32 → EMEROOARM 05:32 → SUATTDRO 16:46 → 3NENU 17:27
PROVIDERS: ADMIT Internal Medicine; ATTEND Internal Medicine